=== PATIENT | male | born 1970 | race Caucasian/White ===

== ENCOUNTER 2023-05-18 08:01 | Day surgery (SDC) | payer BC ==
[~2023-05-18] VITALS: Ht 167.6 cm; Wt 112.0 kg
[2023-05-18] VITALS (480 sets, daily range): BP systolic 118–160; BP diastolic 75–114; PULSE 77–98; TEMP 98–98.5; O2SAT 60–100
[2023-05-18] MEDS ORDERED: ASPIRIN E.C. 8181 MG PO (08:15)
[2023-05-18] MEDS ORDERED: BENICAR HCT 12.1 TAB PO (08:15)
[2023-05-18 08:42] LABS: HEMATOCRIT 43.5 % (42.0-52.0); HEMOGLOBIN 15.4 g/dl (13.5-18.0); MEAN CELL VOLUME 87 fl (80.0-100.0); MEAN CORPUSCULAR HEMOGLOBIN 31 pg (27-31); MEAN CORPUSCULAR HGB CONC 35 g/dl (33.0-37.0); MEAN PLATELET VOLUME 9.9 fl (7.4-10.4); PLATELET COUNT 223 K/mm3 (130-400); RED BLOOD COUNT 5.01 M/mm3 (4.20-5.60); REDCELL DISTRIBUTION WIDTH-CV 12.9 % (11.5-14.5)
[2023-05-18 08:47] LABS: INR 0.9 (0.8-3.0); PROTHROMBIN TIME 10.2 SECONDS (9.7-12.8)
[2023-05-18 09:06] LABS: CALCIUM 9.5 mg/dL (8.4-10.2); POTASSIUM 3.8 mmol/L (3.5-4.5)
[2023-05-18 09:20] LABS: CHOLESTEROL RISK RATIO 5.5
--- NOTE | 2023-05-18 13:00 | NUR ---
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 Pt had 5 stents placed during heart cath. Nitro gtt at 10mcg/min; to remain on until 0800 tomorrow morning. Pt report no pain at this time. Band to left radial with 16ml air placed in it. Band placed at 1230. Site clean and dry with no bleeding. Pt alert and oriented; pt's at bedside. Pt has phone and clothes in his possession; will be taking home all other possessions. Call light in reach and bed alarm on.
--- NOTE | 2023-05-18 13:10 | NUR ---
Bedside report completed with Cara RAJAN. Nitro verified at 10mcg/min, insertion site reviewed, first set of vitals noted. Cara RN denies questions/concerns at this time.
--- NOTE | 2023-05-18 19:15 | NUR ---
Received report from MOHINI Marroquin.
--- NOTE | 2023-05-18 20:45 | NUR ---
Patient resting quietly in bed. Remains on nitro drip, see IV drip titrations. Vitals within normal limits. Patient denies any pain or discomfort. Specifically denies chest pain or pressure. RR cath access site has scant drainage under TR band but is otherwise dry and intact. Site is soft to palpation and without hematoma formation. Pulses palpable. Patient walks from room, around express unit loop, and back to bed with walker and SBA. Gait is steady. Patient denies presence of chest pain following activity.
--- NOTE | 2023-05-18 21:50 | NUR ---
Remaining air in TR band removed at this time. Site is cleaned and dressed with a bandaid. Staff educated patient regarding weight restriction to RUE.
[2023-05-19] VITALS (365 sets, daily range): BP systolic 120–135; BP diastolic 78–91; PULSE 81–86; TEMP 97.5–98.2; O2SAT 74–100
[2023-05-19 06:19] LABS: BASO % 0.5 % (0.0-2.0); EOS # 0.2 K/mm3 (0.0-0.7); EOS % 2.6 % (0.0-4.0); GRAN % 63.4 % (42.2-75.2); HEMATOCRIT 38.1 % (42.0-52.0); LYMPH # 1.7 K/mm3 (1.2-3.4); LYMPH % 22.3 % (20.0-51.0); MEAN CELL VOLUME 89 fl (80.0-100.0); MEAN CORPUSCULAR HEMOGLOBIN 31 pg (27-31); MEAN CORPUSCULAR HGB CONC 35 g/dl (33.0-37.0); MEAN PLATELET VOLUME 9.7 fl (7.4-10.4); MONO # 0.8 K/mm3 (0.1-0.6); MONO % 10.6 % (1.7-9.3); PLATELET COUNT 200 K/mm3 (130-400); REDCELL DISTRIBUTION WIDTH-CV 13.1 % (11.5-14.5)
[2023-05-19 06:35] LABS: CREATININE, serum 0.89 mg/dL (0.72-1.25); HEMOGLOBIN 13.2 g/dl (13.5-18.0); POTASSIUM 3.7 mmol/L (3.5-4.5)
--- NOTE | 2023-05-19 07:00 | NUR ---
REPORT RECIEVED FROM MOHINI MCGOWAN. PT RESTING IN BEDSIDE CHAIR, VSS. NO DRIPS/FLUIDS INFUSING AT THIS TIME. PT IS ALERT AND ORIENTED, CALL LIGHT IN REACH.
[2023-05-19] MEDS ORDERED: IMDUR 60MG60 MG/TAB PO (09:43)
[2023-05-19] MEDS ORDERED: BRILINTA90 MG PO (09:43)
[2023-05-19] MEDS ORDERED: LIPITOR 80MG80 MG PO (09:43)
[2023-05-19] MEDS ORDERED: NORVASC 10MG10 MG PO (09:44)
[2023-05-19] MEDS ORDERED: TOPROL XL200 MG PO (09:46)
--- NOTE | 2023-05-19 11:43 | NUR ---
Reviewed risk factors for heart disease. Covered applicable modifiable risk factors including the following: tobacco cessation, HTN, hyperlipidemia, diabetes, overweight/obesity, sedentary lifestyle, and stress/depression. Patient verbalized understanding and request his referral be sent to [facility]. CR will send referral to [facility] Attn: Arlyn Coleman. Thank you for the referral.
--- NOTE | 2023-05-19 11:58 | NUR ---
PT STABLE THROUGHOUT MORNING; EATING, DRINKING, VOIDING W/ NO TROUBLE. DENIES CHEST PAIN. R RADIAL CATH SITE WNL. IV TO L WRIST DISCONTINUED. DISCHARGE PACKET REVIEWED W/ PT, ALL QUESTIONS ANSWERED. PT DISCHARGED HOME W/ AT 1140.
== END 2023-05-19 11:40 ==
LOC: COL.CAR 08:01 → ICU 13:15 → COL.CAR 13:15 → ICU 16:46 → COL.CAR 05-19 11:40
PROVIDERS: Internal Medicine Cardiovascular Disease
DX: I25.10 Atherosclerotic heart disease of native coronary artery without angina pectoris (principal); I10 Essential (primary) hypertension; R94.39 Abnormal result of other cardiovascular function study; Z79.82 Long term (current) use of aspirin
CPT/HCPCS: OP; C9600; C9601; J0583; J1644; J1920; J2250; J2305; J3010; Q9967